=== PATIENT | female | born 1995 | race Asian ===

== ENCOUNTER 2017-07-16 06:10 | Emergency (ER) | payer OTHER ==
[2017-07-16 06:18] VITALS: O2SAT 96
[2017-07-16] MEDS ORDERED: NS 1,000 ML IV ONE (06:30)
[2017-07-16] MEDS ORDERED: MAG HYDROX/AL HYDROX/SIMETH 30 ML UDCUP PO ONE (06:30)
[2017-07-16] MEDS ORDERED: LIDOCAINE 2% VISCOUS 15 ML UDCUP PO ONE (06:30)
[2017-07-16] MEDS ORDERED: HYOSCYAMINE SULFATE 0.125 MG TAB PO ONE (06:30)
[2017-07-16] MEDS ORDERED: ONDANSETRON 4 MG/2 ML VIAL IVP ONE (06:30)
--- NOTE | 2017-07-16 06:36 | EDPHY ---
H & P Stated Complaint: abd pain- NVD Time Seen by Provider: 07/16/17 06:29 HPI/ROS: Chief Complaint: Abdominal pain HPI: 21-year-old woman woke at 5 o'clock this morning with epigastric abdominal pain. She did vomit once. There is no hematemesis or coffee-ground emesis. Patient last week was having some lower abdominal pain with multiple episodes of diarrhea. This has improved and her last loose bowel movement was about 24 hours ago. No dark tarry stools or blood. Patient states her upper abdominal pain has been crampy in nature. Is not moving. No fevers or chills. ROS: 10 point Review of Systems is negative except as noted in the HPI. PMH: Denies Social History: No smoking, no alcohol, no recreational drug use Family History: non-contributory Physical Exam: Gen: Awake, Alert, No Distress HEENT: Nose: no rhinorrhea Eyes: PERRLA, EOMI Mouth: Moist mucosa Neck: Supple, no JVD Chest: nontender, lungs clear to auscultation Heart: S1, S2 normal, no murmur Abd: Soft, moderate epigastric tenderness, no right upper quadrant tenderness, no lower abdominal tenderness, no guarding Back: no CVA tenderness, no midline tenderness Ext: no edema, non-tender Skin: no rash Neuro: CN II-XII intact, Sensation grossly intact, Strength 5/5 in bilateral upper and lower extremities - Personal History LMP (Females 10-55): 1-7 Days Ago Current Tetanus Diphtheria and Acellular Pertussis (TDAP): Unsure - Medical/Surgical History Hx Asthma: No Hx Chronic Respiratory Disease: No Hx Diabetes: No Hx Cardiac Disease: Yes Hx Renal Disease: No Hx Cirrhosis: No Hx Alcoholism: No Hx HIV/AIDS: No Hx Splenectomy or Spleen Trauma: No Other PMH: valve prolapse - Social History Smoking Status: Never smoked Constitutional: Initial Vital Signs Temperature (C) 37.1 C 07/16/17 06:13 Heart Rate 96 07/16/17 06:13 Respiratory Rate 18 07/16/17 06:13 Blood Pressure 114/72 07/16/17 06:13 O2 Sat (%) 96 07/16/17 06:13 Allergies/Adverse Reactions: No Known Allergies Allergy (Unverified 07/16/17 06:13) Home Medications: Medication Instructions Recorded NK [No Known Home Meds] 07/16/17 Medical Decision Making ED Course/Re-evaluation: Patient is improved after GI cocktail. Abdominal exam shows a soft benign abdomen. Blood work is negative. She is tolerating p. o.. Will discharge her with instructions for [id number] antacids. Follow up with [place] [facility]. - Data Points Laboratory Results: Laboratory Results 07/16/17 06:35 07/16/17 06:35 07/16/17 07/16/17 07/16/17 06:35 06:35 06:35 WBC 8.42 10^3/uL 10^3/uL (3.80-9.50) RBC 4.48 10^6/uL 10^6/uL (4.18-5.33) Hgb 12.2 g/dL L g/dL (12.6-16.3) Hct 38.0 % % (38.0-47.0) MCV 84.8 fL fL (81.5-99.8) MCH 27.2 pg L pg (27.9-34.1) MCHC 32.1 g/dL L g/dL (32.4-36.7) RDW 13.6 % % (11.5-15.2) Plt Count 269 10^3/uL 10^3/uL (150-400) MPV 9.7 fL fL (8.7-11.7) Neut % (Auto) 83.5 % H % (39.3-74.2) Lymph % (Auto) 8.0 % L % (15.0-45.0) [place] % (Auto) 6.2 % % (4.5-13.0) Eos % (Auto) 1.3 % % (0.6-7.6) Baso % (Auto) 0.4 % % (0.3-1.7) Nucleat RBC Rel Count 0.0 % % (0.0-0.2) Absolute Neuts (auto) 7.04 10^3/uL H 10^3/uL (1.70-6.50) Absolute Lymphs (auto) 0.67 10^3/uL L 10^3/uL (1.00-3.00) Absolute Monos (auto) 0.52 10^3/uL 10^3/uL (0.30-0.80) Absolute Eos (auto) 0.11 10^3/uL 10^3/uL (0.03-0.40) Absolute Basos (auto) 0.03 10^3/uL 10^3/uL (0.02-0.10) Absolute Nucleated RBC 0.00 10^3/uL 10^3/uL (0-0.01) Immature Gran % 0.6 % % (0.0-1.1) Immature Gran # 0.05 10^3/uL 10^3/uL (0.00-0.10) Sodium 143 mEq/L mEq/L (134-144) Potassium 3.4 mEq/L L mEq/L (3.5-5.2) Chloride 104 mEq/L mEq/L (97-110) Carbon Dioxide 25 mEq/l mEq/l (22-31) Anion Gap 14 mEq/L mEq/L (8-16) BUN 8 mg/dL mg/dL (7-23) Creatinine 0.7 mg/dL mg/dL (0.6-1.0) Estimated GFR > 60 Glucose 96 mg/dL mg/dL (70-100) Calcium 9.5 mg/dL mg/dL (8.5-10.4) Total Bilirubin 0.6 mg/dL mg/dL (0.1-1.4) AST 17 IU/L IU/L (14-46) ALT 27 IU/L IU/L (9-52) Alkaline Phosphatase 86 IU/L IU/L (38-126) Total Protein 7.5 g/dL g/dL (6.3-8.2) Albumin 4.3 g/dL g/dL (3.5-5.0) Lipase 164 IU/L IU/L (23-300) Beta HCG, Qual NEGATIVE Medications Given: Discontinued Medications Al Hydroxide/Mg Hydroxide (Maalox Susp) 30 ml PO ONCE ONE Stop: 07/16/17 06:31 Last Admin: 07/16/17 06:42 Dose: 30 ml Hyoscyamine Sulfate (Levsin, Hyomax-Sl) 0.25 mg PO ONCE ONE Stop: 07/16/17 06:31 Last Admin: 07/16/17 06:42 Dose: 0.25 mg Sodium Chloride (Ns) 1,000 mls @ 0 mls/hr IV ONCE ONE; Wide Open PRN Reason: Protocol Stop: 07/16/17 06:31 Last Admin: 07/16/17 06:41 Dose: 1,000 mls Lidocaine (Lidocaine 2% Viscous) 15 ml PO ONCE ONE Stop: 07/16/17 06:31 Last Admin: 07/16/17 06:42 Dose: 15 ml Ondansetron HCl (Zofran) 4 mg IVP EDNOW ONE Stop: 07/16/17 06:31 Last Admin: 07/16/17 06:42 Dose: 4 mg Departure - Departure Disposition: Home, Routine, Self-Care Clinical Impression: Gastritis Condition: Good Instructions: Gastritis (ED), Ondansetron (By mouth) Additional Instructions: You may take an [id number] as an acid such as Pepcid as needed for pain. He may take ondansetron as needed for nausea or vomiting. [facility]3 days if symptoms are not improving. Return to the emergency department for increasing pain, fevers, chills, nausea, vomiting, or any other concerns. Referrals: NONE *PRIMARY CARE P,. [Primary Care Provider] - As per Instructions
[2017-07-16 06:41] LABS: % IMMATURE GRANULYOCYTES 0.6 % (0.0-1.1); ABSOLUTE IMMATURE GRANULOCYTES 0.05 10^3/uL (0.00-0.10); ADD DIFF? NO; ADD MORPH? NO; ADD SCAN? YES; FRAGMENT RBC FLAG 0 (0-99); HEMOGLOBIN 12.2 g/dL (12.6-16.3); LEFT SHIFT FLG 10 (0-99); LIPEMIA HEMOLYSIS FLAG 80 (0-99); MEAN CELL HEMOGLOBIN 27.2 pg (27.9-34.1); MEAN CELL HEMOGLOBIN CONCENTR. 32.1 g/dL (32.4-36.7); MEAN CELL VOLUME 84.8 fL (81.5-99.8); MEAN PLATELET VOLUME 9.7 fL (8.7-11.7); PLATELET CLUMPS FLAG 0 (0-99); PLATELET COUNT 269 10^3/uL (150-400); RED BLOOD CELL COUNT 4.48 10^6/uL (4.18-5.33); RED CELL DISTRIBUTION WIDTH 13.6 % (11.5-15.2)
[2017-07-16 06:44] LABS: ATYPICAL LYMPHOCYTE FLAG 110 (0-99)
[2017-07-16 07:02] LABS: ALANINE AMINOTRANSFERASE 27 IU/L (9-52); ALBUMIN 4.3 g/dL (3.5-5.0); ALKALINE PHOSPHATASE 86 IU/L (38-126); ANION GAP 14 mEq/L (8-16); ASPARTATE AMINOTRANSFERASE 17 IU/L (14-46); BILIRUBIN,TOTAL 0.6 mg/dL (0.1-1.4); CALCIUM 9.5 mg/dL (8.5-10.4); CARBON DIOXIDE 25 mEq/l (22-31); CHLORIDE 104 mEq/L (97-110); CREATININE 0.7 mg/dL (0.6-1.0); GLOMERULAR FILTRATION RATE > 60; GLUCOSE 96 mg/dL (70-100); POTASSIUM 3.4 mEq/L (3.5-5.2); SODIUM 143 mEq/L (134-144); TOTAL PROTEIN 7.5 g/dL (6.3-8.2)
[2017-07-16 07:11] LABS: SCAN NEGATIVE
[2017-07-16] MEDS ORDERED: ONDANSETRON 4MG PREPACK#2 BTL TAKEHOME ONE (07:17)
[2017-07-16 07:30] VITALS: BP 99/56; PULSE 74; RESP 16; TEMP 98.4
== END 2017-07-16 07:32 | disposition home or self-care (01) ==
DX: K29.70 Gastritis, unspecified, without bleeding (principal); E86.9 Volume depletion, unspecified
CPT/HCPCS: 96374; J2405

== ENCOUNTER 2018-02-13 14:07 | Emergency (ER) | payer OTHER ==
[2018-02-13 14:22] VITALS: BP 103/80
[2018-02-13] MEDS ORDERED: LIDOCAINE 2% VISCOUS 15 ML UDCUP PO ONE (14:40)
[2018-02-13] MEDS ORDERED: HYOSCYAMINE SULFATE 0.125 MG TAB PO ONE (14:40)
[2018-02-13] MEDS ORDERED: MAG HYDROX/AL HYDROX/SIMETH 30 ML UDCUP PO ONE (14:40)
--- NOTE | 2018-02-13 14:42 | EDPHY ---
H & P Stated Complaint: painful to swallow Time Seen by Provider: 02/13/18 14:33 HPI/ROS: CHIEF COMPLAINT: Right anterolateral neck pain, possible fishbone HISTORY OF PRESENT ILLNESS: 22-year-old healthy female in the ER via private vehicle complaining of odynophagia for the past 3 days. This started the day after eating fish, believes that she may have swallowed a fishbone. She is complaining of tender adenopathy in the submandibular region. She is complaining of odynophagia to same location with swallowing. No change in voice. No chest pain. No abdominal pain. No nausea or vomiting. No fever or chills. No cold flu or URI symptoms PRIMARY CARE PROVIDER: REVIEW OF SYSTEMS: A ten point review of systems was performed and is negative with the exception of the items mentioned in the HPI PAST MEDICAL & SURGICAL HISTORY: No pertinent medical or surgical history SOCIAL HISTORY: Nonsmoker PHYSICAL EXAM (Prior to examination, patient consented to physical exam, hands were washed and my usual and customary physical exam procedures followed) 1) GENERAL: Well-developed, well-nourished, alert and oriented. Appears to be in no acute distress. 2) HEAD: Normocephalic, atraumatic 3) HEENT: Pupils equal, round, reactive to light bilaterally. Sclera anicteric. Nasopharynx, oropharynx, clear, no lesions. No tonsillar enlargement or exudate. No trismus no drooling. No irritation. No hot potato voice. Ears bilaterally with normal tympanic membranes. 4) NECK: Full range of motion, no meningeal signs. Positive tender right submandibular adenopathy. No crepitus 5) LUNGS: Clear auscultation bilaterally, no wheezes, no rhonchi, no retractions. 6) HEART: Regular rate and rhythm, no murmur, no heave, no gallop. 7) ABDOMEN: No guarding, no rebound, no focal tenderness 8) MUSCULOSKELETAL: No peripheral edema or discoloration. 9) BACK: No visual or palpable abnormality. 10) SKIN: No rash, no petechiae. 11) Psychiatric: Patient is oriented X 3, there is no agitation. DIFFERENTIAL DIAGNOSIS: In no particular order including but not limited to esophageal foreign body, esophageal abrasion, strep pharyngitis, mononucleosis, peritonsillar abscess, retropharyngeal abscess or phlegmon - Personal History LMP (Females 10-55): 22-28 Days Ago Current Tetanus/Diphtheria Vaccine: Unsure Current Tetanus Diphtheria and Acellular Pertussis (TDAP): Unsure - Medical/Surgical History Hx Asthma: No Hx Chronic Respiratory Disease: No Hx Diabetes: No Hx Cardiac Disease: Yes Hx Renal Disease: No Hx Cirrhosis: No Hx Alcoholism: No Hx HIV/AIDS: No Hx Splenectomy or Spleen Trauma: No Other PMH: valve prolapse, UC, - Social History Smoking Status: Never smoked Constitutional: Initial Vital Signs Temperature (C) 36.5 C 02/13/18 14:20 Heart Rate 83 02/13/18 14:20 Respiratory Rate 16 02/13/18 14:20 Blood Pressure 103/80 02/13/18 14:20 O2 Sat (%) 97 02/13/18 14:20 O2 Delivery Mode Room Air Allergies/Adverse Reactions: No Known Allergies Allergy (Unverified 02/13/18 14:19) Home Medications: Medication Instructions Recorded Lialda 02/13/18 Medical Decision Making ED Course/Re-evaluation: 2:40 p.m.: I have evaluated the patient. Her airway is patent. She is noted to have tender right submandibular adenopathy. Plan will be Monospot testing, soft tissue x-ray to evaluate radiopaque foreign body, GI cocktail as esophageal abrasion is not ruled out. Doubt epiglottitis at this time. Doubt deep space infections such as peritonsillar abscess or retropharyngeal abscess or phlegmon. Care of patient under supervision of primary supervising physician Dr Bernal. 3:20 p.m.: The patient declines any imaging studies. I consulted with CARA Guerrero of [facility] who agrees see the patient's afternoon. Patient will go directly to their office. - Data Points Laboratory Results: 02/13/18 14:57 Monoscreen NEGATIVE (NEGATIVE) Medications Given: Discontinued Medications Al Hydroxide/Mg Hydroxide (Maalox Susp) 30 ml PO ONCE ONE Stop: 02/13/18 14:41 Last Admin: 02/13/18 14:58 Dose: 30 ml Hyoscyamine Sulfate (Levsin, Hyomax-Sl) 0.25 mg PO ONCE ONE Stop: 02/13/18 14:41 Last Admin: 02/13/18 14:58 Dose: 0.25 mg Lidocaine (Lidocaine 2% Viscous) 15 ml PO ONCE ONE Stop: 02/13/18 14:41 Last Admin: 02/13/18 14:58 Dose: 15 ml Departure - Departure Disposition: Home, Routine, Self-Care Clinical Impression: Globus pharyngeus Condition: Good Instructions: Esophageal Foreign Body (ED) Referrals: Chrissy Guerrero PA [Physician Partition Making Machine Operator] - 02/13/18 3:30 pm (Go directly to [facility] on the hospital campus)
== END 2018-02-13 15:15 | disposition home or self-care (01) ==
DX: F45.8 Other somatoform disorders (principal)